=== PATIENT | female | born 1935 | race Caucasian/White ===

== ENCOUNTER 2017-06-11 06:04 | Emergency (ER) | payer MEDICARE, OTHER ==
[~2017-06-11] VITALS: Ht 167.6 cm; Wt 70.0 kg
[~2017-06-11 06:04] MED LIST: AMLO10 PO; ATEN-102 PO; AUGM500T7 PO; CITA10TA PO; IPRAAER IN; KCL10 PO; OMEP20TA39 PO; TRAM-388 PO; [UNRECOGNIZED DRUG - CODE] TOP
[2017-06-11 06:06] VITALS: BP 171/76; PULSE 55; RESP 16; TEMP 97.6; O2SAT 97
[2017-06-11 06:23] VITALS: BP 173/80; PULSE 52; RESP 18; O2SAT 96
[2017-06-11 06:28] VITALS: BP_SYST 151; BP_SYST 173; BP_DIAS 70; BP_DIAS 80
[2017-06-11 06:29] VITALS: O2SAT 96
--- NOTE | 2017-06-11 06:29 | PD ---
HPI Chief Complaint: Chest Pain Time Seen by Provider: 06:24 Travel History International Travel<30 days: No Contact w/Intl Traveler<30days: No Traveled to known affect area: No History of Present Illness HPI The patient is an 81 year old female who presents to the [facility] emergency department with a history of right-sided anterior chest wall pain that she reports began 4-5 days ago after she tripped and fell. The patient reports that she landed on that side. She denies hitting her head or losing consciousness. She denies having any neck pain, paresthesias, or weakness of her extremities. The patient said the pain is gradually getting worse with time. She reports that at times it seems to take her breath away. She reports that she took ibuprofen earlier this morning for the pain. The patient is brought in by her family member. She denies having any recent fevers,cough, congestion, neck pain, abdominal pain, vomiting, diarrhea, urinary symptoms, or neurologic symptoms. PFS Past Medical History Narrative Medical The patient's past medical history is significant for hypertension, depression, history of cerebrovascular accident, history of dementia. Arthritis: Yes Asthma: No Autoimmune Disease: No Blood Disorders: No Anxiety: No Depression: Yes Heart Rhythm Problems: No Cancer: No Cardiovascular Problems: Yes High Cholesterol: No Chemotherapy: No Chest Pain: No Congestive Heart Failure: No COPD: No Cerebrovascular Accident: Yes (CVA 2013) Diminished Hearing: No Endocrine: No Gastrointestinal Disorders: Yes (GI BLEED) GERD: No Glaucoma: No Genitourinary: No Headaches: Yes Hepatitis: No Hiatal Hernia: Yes Hypertension: Yes Immune Disorder: No Kidney Stones: No Musculoskeletal: Yes Neurologic: Yes Psychiatric: Yes Reproductive: No Respiratory: No Immunizations Current: Yes Migraines: Yes Myocardial Infarction: No Radiation Therapy: No Renal Failure: No Seizures: No Sickle Cell Disease: No Sleep Apnea: No Ulcer: Yes PNEUMOCCOCAL Vaccine (Year): 2 Past Surgical History Narrative Surgical The patient's past surgical history is significant for an appendectomy, hysterectomy, cholecystectomy, tonsillectomy. Abdominal Surgery: Yes (APPENDECTOMY,HYSTERECTOMY,CHOLECYSTECTOMY) AICD: No Appendectomy: Yes Arteriovenous Shunt: No Body Medical Devices: HX GI BLEED 1999 Cardiac Surgery: No Cholecystectomy: Yes Ear Surgery: No Endocrine Surgery: No Eye Surgery: No Genitourinary Surgery: No Gynecologic Surgery: Yes (HYSTERECTOMY) Hysterectomy: Yes Insulin Pump: No Joint Replacement: No Oral Surgery: Yes Pacemaker: No Thoracic Surgery: No Tonsillectomy: Yes Other Surgery: Yes Social History Alcohol Use: No Tobacco Use: No Substance Use: No Allergies-Medications (Allergen,Severity, Reaction): Coded Allergies: amitriptyline (Unverified Allergy, Severe, Hives, 06/11/17) aspirin (Unverified Allergy, Severe, RASH, 06/11/17) codeine (Unverified Allergy, Severe, NAUSEA AND HIVES, 06/11/17) meperidine (Unverified Allergy, Severe, 06/11/17) Reported Meds & Prescriptions Reported Meds & Active Scripts Active Active Prescriptions or Reported Medications Unobtainable Review of Systems Except as stated in HPI: all other systems reviewed are Neg General / Constitutional: No: Fever Eyes: No: Visual changes HENT: No: Headaches Cardiovascular: Positive: Chest Pain or Discomfort (right-sided chest wall pain ) Respiratory: No: Shortness of Breath Gastrointestinal: No: Nausea, Vomiting, Diarrhea, Abdominal Pain Genitourinary: No: Dysuria Musculoskeletal: No: Pain Skin: No Rash Neurologic: No: Weakness Psychiatric: No: Depression Endocrine: No: Polydipsia Hematologic/Lymphatic: No: Easy Bruising Physical Exam Narrative General: The patient is a well-developed well-nourished female in no acute distress. Head and Neck exam: Head is normocephalic atraumatic. Eyes: EOMI, pupils are equal round and reactive to light. Nose: Midline septum with pink mucous membranes Mouth: Dentition unremarkable. Moist mucus membranes. Posterior oropharynx is not erythematous. No tonsillar hypertrophy. Uvula midline. Airway patent. Neck: No palpable lymphadenopathy. No nuchal rigidity. No thyromegaly. Cardiovascular: Sinus bradycardia in the 50s without murmurs, gallops, or rubs. Lungs: Clear to auscultation bilaterally. No wheezes, rhonchi, or rales. The patient on examination her chest wall reports having chest wall pain along the right lower anterior chest wall just below the ribs. Right breast. The patient has no ecchymosis or erythema noted. No crepitus. No flail segment. Abdomen: Soft, without tenderness to palpation in all 4 quadrants of the abdomen. No guarding, rebound, or rigidity. Normal bowel sounds are audible. No tenderness on palpation of McBurney's point. Negative Marquez sign. Extremities: No clubbing, cyanosis, or edema. 2+ pulses in all 4 extremities. No calf tenderness on palpation. No extremity pain or tenderness on palpation. Back: No spinous process tenderness to palpation. No costovertebral angle tenderness to palpation. Neurologic Exam: Grossly nonfocal. Skin Exam: No rash noted. Intact skin that is warm and dry. Data Data Last Documented VS Vital Signs Date Time Temp Pulse Resp B/P (MAP) Pulse Ox O2 Delivery O2 Flow Rate FiO2 06/11/17 06:29 96 Room Air 06/11/17 06:23 52 18 06/11/17 06:06 97.6 Orders Orders Electrocardiogram (06/11/17 06:24) B-Type Natriuretic Peptide (06/11/17 06:24) Ckmb (Isoenzyme) Profile (06/11/17 06:24) Complete Blood Count With Diff (06/11/17 06:24) Comprehensive Metabolic Panel (06/11/17 06:24) D-Dimer (06/11/17 06:24) Magnesium (Mg) (06/11/17 06:24) Prothrombin Time / Inr (Pt) (06/11/17 06:24) Act Partial Throm Time (Ptt) (06/11/17 06:24) Troponin I (06/11/17 06:24) Lipase (06/11/17 06:24) Chest, Single Ap (06/11/17 06:24) Ecg Monitoring (06/11/17 06:24) Bilateral Bp Monitoring (06/11/17 06:24) Iv Access Insert/Monitor (06/11/17 06:24) Oximetry (06/11/17 06:24) Oxygen Administration (06/11/17 06:24) Nitroglycerin 2% Oint (Nitroglycerin 2% (06/11/17 06:30) Sodium Chloride 0.9% Flush (Ns Flush) (06/11/17 06:30) Nitroglycerin Sl (Nitrostat Sl) (06/11/17 06:30) Acetaminophen (Tylenol) (06/11/17 07:15) Labs Laboratory Tests Test 06/11/17 06:37 White Blood Count 7.0 TH/MM3 Red Blood Count 4.07 MIL/MM3 Hemoglobin 11.8 GM/DL Hematocrit 35.6 % Mean Corpuscular Volume 87.4 FL Mean Corpuscular Hemoglobin 28.9 PG Mean Corpuscular Hemoglobin Concent 33.1 % Red Cell Distribution Width 15.2 % Platelet Count 249 TH/MM3 Mean Platelet Volume 8.3 FL Neutrophils (%) (Auto) 71.2 % Lymphocytes (%) (Auto) 18.2 % Monocytes (%) (Auto) 9.0 % Eosinophils (%) (Auto) 0.9 % Basophils (%) (Auto) 0.7 % Neutrophils # (Auto) 5.0 TH/MM3 Lymphocytes # (Auto) 1.3 TH/MM3 Monocytes # (Auto) 0.6 TH/MM3 Eosinophils # (Auto) 0.1 TH/MM3 Basophils # (Auto) 0.0 TH/MM3 CBC Comment DIFF FINAL Differential Comment Prothrombin Time 10.0 SEC Prothromb Time International Ratio 1.0 RATIO Activated Partial Thromboplast Time 24.0 SEC D-Dimer Quantitative (PE/DVT) 2.24 MG/L [facility]U [facility] Medical Decision Making Medical Screen Exam Complete: Yes Emergency Medical Condition: Yes Medical Record Reviewed: Yes Differential Diagnosis Rib fracture, versus pneumothorax, versus pneumothorax, versus pneumonia, versus acute coronary syndrome, versus shingles, versus musculoskeletal strain, versus contusion, versus pulmonary embolism Narrative Course During the course of the patients emergency department visit, the patients history, examination, and differential diagnosis were reviewed with the patient. The patient was placed on a pvc monitor with oximetry and frequent blood pressure monitoring. The patient had IV access obtained and blood work sent for analysis. An EKG was done on arrival. The patient's EKG reveals a sinus bradycardia, first-degree AV block, rate of 53, QRS duration 92 ms, QTC 429 ms without any acute ST segment changes or elevation. The patient was initially provided Tylenol for pain, nitroglycerin sublingual times one to assess for possible changes in pain related to the administration, and nitroglycerin 1 inch the chest wall. The patients laboratory studies were reviewed and remarkable for a CBC that shows a white count 7, hemoglobin 11.8, platelets 249 with 71.2 neutrophils, PT PTT within normal limits, d-dimer is elevated at 2.24, CTA to rule out PE has been ordered. Radiology studies were reviewed and remarkable for a chest x-ray that shows minimal basilar atelectasis. No other acute abnormality. The patient's chemistry panel, cardiac enzymes, CTA to rule out PE or pending at the conclusion of my shift. The patient's case will be checked out to the oncoming emergency physician disposition the patient based on the conclusion of the workup. Diagnosis Primary Impression: Right-sided chest pain Additional Impression: Shortness of breath Scripts Unable to Obtain Active Prescriptions or Reported Meds Rut Donald MD Jun 11, 2017 06:29
[2017-06-11] MEDS ORDERED: SODIUM CHLORIDE 0.9% FLUSH 10 ML FLUSH IVF PRN (06:30)
[2017-06-11] MEDS ORDERED: NITROGLYCERIN 2% OINT 1 GM PACKET TOP ONE (06:30)
[2017-06-11] MEDS ORDERED: NITROGLYCERIN 0.4 MG SL 25 TABS/BTL SL ONE (06:30)
[2017-06-11 06:50] LABS: BASOPHIL % 0.7 % (0.0-2.0); EOSINOPHIL # 0.1 TH/MM3 (0-0.4); EOSINOPHIL % 0.9 % (0.0-4.0); HEMATOCRIT 35.6 % (35.0-46.0); HEMOGLOBIN 11.8 GM/DL (11.6-15.3); LYMPH % 18.2 % (9.0-44.0); LYMPHOCYTE # 1.3 TH/MM3 (1.0-4.8); MEAN CELL VOLUME 87.4 FL (80.0-100.0); MEAN CORPUSCULAR HEMOGLOBIN 28.9 PG (27.0-34.0); MEAN CORPUSCULAR HGB CONC 33.1 % (32.0-36.0); MEAN PLATELET VOLUME 8.3 FL (7.0-11.0); MONOCYTE # 0.6 TH/MM3 (0-0.9); NEUT % 71.2 % (16.0-70.0); PLATELET COUNT 249 TH/MM3 (150-450); RED BLOOD COUNT 4.07 MIL/MM3 (4.00-5.30); RED CELL DISTRIBUTION WIDTH 15.2 % (11.6-17.2)
--- NOTE | 2017-06-11 06:50 | RADRPT ---
EXAM DATE/TIME: 06/11/2017 06:29 [facility] COMPARISON: CHEST SINGLE AP, March 04, 2016, 22:34. INDICATIONS : Short of breath. MEDICAL HISTORY : None. SURGICAL HISTORY : None. ENCOUNTER: Initial ACUITY: 1 day PAIN SCORE: 0/10 LOCATION: Bilateral chest FINDINGS: A single view of the chest demonstrates mild cardiomegaly. Tortuous aorta. Minimal basilar atelectasi s. No effusion. No pneumothorax. Capsular calcifications around breast implants. CONCLUSION: 1. Minimal basilar atelectasis. Delfin Tavares MD on June 11, 2017 at 6:46 Board Certified Radiologist. This report was verified electronically.
[2017-06-11 07:10] LABS: D-DIMER 2.24 MG/L FEU (0.00-0.50)
[2017-06-11] MEDS ORDERED: ACETAMINOPHEN 325 MG TAB PO ONE (07:15)
[2017-06-11 07:31] LABS: ALBUMIN 3.6 GM/DL (3.4-5.0); ALKALINE PHOSPHATASE 74 U/L (45-117); ALT (GPT) 13 U/L (10-53); AST (GOT) 12 U/L (15-37); BICARBONATE 19.6 MEQ/L (21.0-32.0); BLOOD UREA NITROGEN 20 MG/DL (7-18); CALCIUM 8.2 MG/DL (8.5-10.1); CHLORIDE 113 MEQ/L (98-107); CREATININE 0.84 MG/DL (0.50-1.00); GLOMERULAR FILTRATION RATE 65 ML/MIN (>89); GLUCOSE,RANDOM 84 MG/DL (74-106); LIPASE 208 U/L (73-393); MAGNESIUM 2.1 MG/DL (1.5-2.5); SODIUM (NA) 142 MEQ/L (136-145); TOTAL BILIRUBIN ADULT 0.3 MG/DL (0.2-1.0); TOTAL PROTEIN 7.9 GM/DL (6.4-8.2); TROPONIN I LESS THAN 0.02 NG/ML (0.02-0.05)
[2017-06-11 07:34] VITALS: BP 134/70; PULSE 50; RESP 16; O2SAT 96
[2017-06-11] MEDS ORDERED: IOHEXOL 350 MG/ML 10 ML VIAL (for RAD DIAG) IVCONTRAST ONE (08:28)
[2017-06-11 08:35] VITALS: RESP 16
--- NOTE | 2017-06-11 08:55 | RADRPT ---
EXAM DATE/TIME: 06/11/2017 08:21 [facility] COMPARISON: No previous studies available for comparison. INDICATIONS : Right sided chest pain, fall. IV CONTRAST: 79 cc Omnipaque 350 (iohexol) IV RADIATION DOSE: 15.66 CTDIvol (mGy) MEDICAL HISTORY : Hypertension. Dementia. CVA SURGICAL HISTORY : Appendectomy. Hysterectomy. ENCOUNTER: Initial ACUITY: 1 day PAIN SCALE: 7/10 LOCATION: Right chest TECHNIQUE: Volumetric scanning of the chest was performed using a pulmonary embolism protocol MIP images were re constructed. Using automated exposure control and adjustment of the mA and/or kV according to patien t size, radiation dose was kept as low as reasonably achievable to obtain optimal diagnostic quality images. DICOM format image data is available electronically for review and comparison. Follow-up recommendations for detected pulmonary nodules are based at a minimum on nodule size and pa tient risk factors according to Fleischner Society Guidelines. FINDINGS: PULMONARY ARTERIES: No filling defects are seen in the pulmonary arteries through the segmental level. LUNGS: There is no consolidation or pneumothorax . 4 mm right upper lobe nodule seen toward the apex. Ground glass density in the left lower lobe measures 9 mm. Thin-walled cyst in the right lobe. There is mini mal peripheral scarring in the right lung. PLEURAE: There is no pleural thickening or pleural effusion on the left. Tiny right pleural effusion. MEDIASTINUM: There is good visualization of the great vessels of the middle mediastinum. No evidence of mediastin al or hilar adenopathy/mass. MUSCULOSKELETAL: Degenerative changes of the thoracic spine with minimal scoliosis. MISCELLANEOUS: The visualized upper abdominal organs demonstrate no acute abnormality. Calcified breast implants. CONCLUSION: 1. No evidence for pulmonary embolism. 2. Few scattered subcentimeter nodules. Followup CT chest in 6 months recommended as outpatient. 3. No pneumonia. Chintan Camarena MD on June 11, 2017 at 8:49 Board Certified Radiologist. This report was verified electronically.
[2017-06-11] MEDS ORDERED: TRAM50TA PO (09:18)
--- NOTE | 2017-06-11 09:18 | PD ---
Physical Exam Narrative Patient signed out to me by Dr. Donald. Please see her documentation for complete details. Briefly, patient is an 81-year-old female complaining of right lateral rib pain since a fall a few days ago. She denies having left-sided chest pain or any shortness of breath. Exam shows tenderness to the right lower ribs. Data Data Last Documented VS Vital Signs Date Time Temp Pulse Resp B/P (MAP) Pulse Ox O2 Delivery O2 Flow Rate FiO2 06/11/17 07:34 50 16 134/70 (91) 96 Room Air 06/11/17 06:06 97.6 Orders Orders Electrocardiogram (06/11/17 06:24) B-Type Natriuretic Peptide (06/11/17 06:24) Ckmb (Isoenzyme) Profile (06/11/17 06:24) Complete Blood Count With Diff (06/11/17 06:24) Comprehensive Metabolic Panel (06/11/17 06:24) D-Dimer (06/11/17 06:24) Magnesium (Mg) (06/11/17 06:24) Prothrombin Time / Inr (Pt) (06/11/17 06:24) Act Partial Throm Time (Ptt) (06/11/17 06:24) Troponin I (06/11/17 06:24) Lipase (06/11/17 06:24) Chest, Single Ap (06/11/17 06:24) Ecg Monitoring (06/11/17 06:24) Bilateral Bp Monitoring (06/11/17 06:24) Iv Access Insert/Monitor (06/11/17 06:24) Oximetry (06/11/17 06:24) Oxygen Administration (06/11/17 06:24) Nitroglycerin 2% Oint (Nitroglycerin 2% (06/11/17 06:30) Sodium Chloride 0.9% Flush (Ns Flush) (06/11/17 06:30) Nitroglycerin Sl (Nitrostat Sl) (06/11/17 06:30) Acetaminophen (Tylenol) (06/11/17 07:15) Ct Pulmonary Angiogram (06/11/17 07:17) Iohexol 350 Inj (Omnipaque 350 Inj) (06/11/17 08:28) Labs Laboratory Tests Test 06/11/17 06:37 White Blood Count 7.0 TH/MM3 Red Blood Count 4.07 MIL/MM3 Hemoglobin 11.8 GM/DL Hematocrit 35.6 % Mean Corpuscular Volume 87.4 FL Mean Corpuscular Hemoglobin 28.9 PG Mean Corpuscular Hemoglobin Concent 33.1 % Red Cell Distribution Width 15.2 % Platelet Count 249 TH/MM3 Mean Platelet Volume 8.3 FL Neutrophils (%) (Auto) 71.2 % Lymphocytes (%) (Auto) 18.2 % Monocytes (%) (Auto) 9.0 % Eosinophils (%) (Auto) 0.9 % Basophils (%) (Auto) 0.7 % Neutrophils # (Auto) 5.0 TH/MM3 Lymphocytes # (Auto) 1.3 TH/MM3 Monocytes # (Auto) 0.6 TH/MM3 Eosinophils # (Auto) 0.1 TH/MM3 Basophils # (Auto) 0.0 TH/MM3 CBC Comment DIFF FINAL Differential Comment Prothrombin Time 10.0 SEC Prothromb Time International Ratio 1.0 RATIO Activated Partial Thromboplast Time 24.0 SEC D-Dimer Quantitative (PE/DVT) 2.24 MG/L FEU Blood Urea Nitrogen 20 MG/DL Creatinine 0.84 MG/DL Random Glucose 84 MG/DL Total Protein 7.9 GM/DL Albumin 3.6 GM/DL Calcium Level 8.2 MG/DL Magnesium Level 2.1 MG/DL Alkaline Phosphatase 74 U/L Aspartate Amino Transf (AST/SGOT) 12 U/L Alanine Aminotransferase (ALT/SGPT) 13 U/L Total Bilirubin 0.3 MG/DL Sodium Level 142 MEQ/L Potassium Level 3.9 MEQ/L Chloride Level 113 MEQ/L Carbon Dioxide Level 19.6 MEQ/L Anion Gap 9 MEQ/L Estimat Glomerular Filtration Rate 65 ML/MIN Total Creatine Kinase 80 U/L Troponin I LESS THAN 0.02 NG/ML B-Type Natriuretic Peptide 155 PG/ML Lipase 208 U/L [facility] Supervised Visit with ALLY: No Narrative Course Labs performed show no acute abnormalities. CTA of the chest shows no evidence of rib fracture or PE. There are a few nodules in the lungs, patient informed of this and advised follow-up in 6 months for repeat scan. She will be discharged with a prescription for a few tramadol. She is advised that these may make her dizzy or drowsy and she needs to be careful to avoid falling. She is advised to follow-up with her doctor. Advised to return to the ED as needed for any worsening symptoms. She and her are both comfortable discharge at this time. Diagnosis Primary Impression: Rib pain on right side Patient Instructions: General Instructions, Rib Contusion (ED) Additional Instruction: Take Tylenol as needed for pain. He can take a tramadol for severe pain. Be careful as this may make you drowsy or dizzy. Follow-up with your doctor. Return to the ED as needed for any worsening symptoms. Scripts Tramadol (Tramadol) 50 Mg Tab 50 MG PO Q6H Y for PAIN, #7 TAB 0 Refills Prov: Enma Ernst MD 06/11/17 Disposition: DISCHARGE HOME Condition: Stable Enma Ernst MD Jun 11, 2017 09:18
--- NOTE | 2017-06-12 00:31 | EKG ---
Date Performed: 06/11/2017 Time Performed: 06:37:03 PTAGE: 81 years EKG: SINUS BRADYCARDIA WITH FIRST DEGREE AV BLOCK ABNORMAL ECG PREVIOUS TRACING : 03/03/2016 02.14 Since the prior tracing, there has been no significant villanueva DOCTOR: Aries Loredo Interpretating Date/Time 06/12/2017 00:29:13
== END 2017-06-11 10:01 | disposition home or self-care (01) ==
LOC: NEPE 06:04
DX: R07.81 Pleurodynia (principal); R06.02 Shortness of breath; R00.1 Bradycardia, unspecified
CPT/HCPCS: 71045; 71275; 80053; 82550; 83690; 83735; 83880; 84484; 85025; 85379; 85610; 85730; 93005; 99285; Q9967

== ENCOUNTER 2017-07-09 11:42 | Emergency (ER) | payer OTHER ==
[~2017-07-09 11:42] MED LIST changes: -AMLO10 PO; -ATEN-102 PO; -AUGM500T7 PO; -CITA10TA PO; -IPRAAER IN; -KCL10 PO; -OMEP20TA39 PO; -TRAM-388 PO; +TRAM50TA PO; -[UNRECOGNIZED DRUG - CODE] TOP
[2017-07-09 12:12] VITALS: BP 141/65; PULSE 53; RESP 18; TEMP 97.4
[2017-07-09 13:06] LABS: AUTOMATED NEUTROPHIL # 7.8 TH/MM3 (1.8-7.7); BASOPHIL % 0.5 % (0.0-2.0); EOSINOPHIL # 0.1 TH/MM3 (0-0.4); EOSINOPHIL % 0.9 % (0.0-4.0); HEMATOCRIT 36.9 % (35.0-46.0); LYMPH % 15.1 % (9.0-44.0); LYMPHOCYTE # 1.5 TH/MM3 (1.0-4.8); MEAN CELL VOLUME 87.1 FL (80.0-100.0); MEAN CORPUSCULAR HEMOGLOBIN 28.4 PG (27.0-34.0); MEAN CORPUSCULAR HGB CONC 32.6 % (32.0-36.0); MEAN PLATELET VOLUME 8.3 FL (7.0-11.0); MONO % 7.8 % (0.0-8.0); MONOCYTE # 0.8 TH/MM3 (0-0.9); NEUT % 75.7 % (16.0-70.0); PLATELET COUNT 237 TH/MM3 (150-450); RED BLOOD COUNT 4.23 MIL/MM3 (4.00-5.30); RED CELL DISTRIBUTION WIDTH 15.9 % (11.6-17.2); WHITE BLOOD COUNT 10.3 TH/MM3 (4.0-11.0)
[2017-07-09 13:14] LABS: PROTHROMBIN TIME - PATIENT 10.2 SEC (9.8-11.6)
[2017-07-09 13:26] LABS: TROPONIN I LESS THAN 0.02 NG/ML (0.02-0.05)
[2017-07-09 13:35] LABS: BICARBONATE 21.3 MEQ/L (21.0-32.0); BLOOD UREA NITROGEN 12 MG/DL (7-18); CALCIUM 8.7 MG/DL (8.5-10.1); CHLORIDE 107 MEQ/L (98-107); CREATININE 0.78 MG/DL (0.50-1.00); GLOMERULAR FILTRATION RATE 71 ML/MIN (>89); GLUCOSE,RANDOM 85 MG/DL (74-106); MAGNESIUM 2.1 MG/DL (1.5-2.5); SODIUM (NA) 136 MEQ/L (136-145)
--- NOTE | 2017-07-09 13:36 | RADRPT ---
EXAM DATE/TIME: 07/09/2017 13:05 [facility] COMPARISON: No previous studies available for comparison. INDICATIONS : Fall today RADIATION DOSE: 56.35 CTDIvol (mGy) MEDICAL HISTORY : Cerebrovascular disease. Hypertension. SURGICAL HISTORY : Hysterectomy. ENCOUNTER: Initial ACUITY: 1 day PAIN SCALE: 9/10 LOCATION: cranial TECHNIQUE: Multiple contiguous axial images were obtained of the head. Using automated exposure control and adj ustment of the mA and/or kV according to patient size, radiation dose was kept as low as reasonably a chievable to obtain optimal diagnostic quality images. DICOM format image data is available electro nically for review and comparison. FINDINGS: CEREBRUM: Bilateral occipital infarcts are seen. Infarct in the right basal ganglia and to a lesser degree left basal ganglia. Left cerebellar infarct. The ventricles are prominent consistent with atrophy. No ev idence of midline shift, mass lesion, hemorrhage or acute infarction. No extra-axial fluid collectio ns are seen. POSTERIOR FOSSA: The brainstem is intact. The 4th ventricle is midline. The cerebellopontine angle is unremarkable. EXTRACRANIAL: The visualized portion of the orbits is intact. SKULL: Prominent lytic lesion in the left posterior occipital/parietal calvarium measures 2.9 x 1.0 cm. Ther e is destructive lytic process of the outer table and medullary portion. This is concerning for metas tatic disease. CONCLUSION: 1. Cerebral atrophy and multifocal bilateral remote infarcts. 2. 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 Chintan Camarena MD on July 09, 2017 at 13:31 Board Certified Radiologist. This report was verified electronically.
--- NOTE | 2017-07-09 13:39 | RADRPT ---
EXAM DATE/TIME: 07/09/2017 12:54 [facility] COMPARISON: CHEST PA & LAT, September 13, 2015, 15:45. INDICATIONS : Shortness of breath and palpitations. MEDICAL HISTORY : None. SURGICAL HISTORY : None. ENCOUNTER: Initial ACUITY: 1 day PAIN SCORE: 0/10 LOCATION: Bilateral chest FINDINGS: AP and lateral views of the chest demonstrate a normal-sized cardiac silhouette with calcification of the aorta. Lungs are underinflated with mild bibasilar opacity. No pleural effusion or pneumothorax is identified. There is a stable subpleural opacity at the right lung apex. Bones and soft tissues de monstrate no acute finding. There is levoscoliosis of the lumbar spine. Breast implants are present. CONCLUSION: Underinflation with atelectasis at the lung bases. Otherwise, no acute cardiopulmonary abnormality is identified. Ryan Dimas MD on July 09, 2017 at 13:37 Board Certified Radiologist. This report was verified electronically.
--- NOTE | 2017-07-09 13:41 | PD ---
HPI Chief Complaint: Fall Time Seen by Provider: 13:03 Travel History International Travel<30 days: No Contact w/Intl Traveler<30days: No Traveled to known affect area: No History of Present Illness HPI 81-year-old female complains left wrist pain left hand pain. Patient states that she fell this morning. Patient denies loss of consciousness. Patient denies any headache or neck pain. Patient denies any chest pain or shortness of breath. Patient denies abdominal pain. Patient denies any focal weakness or numbness of the extremity. Patient states that she has frequent falls recently. Patient states that she has been eating well. Patient stated that no new medication recently. PFSH Past Medical History Arthritis: Yes Asthma: No Autoimmune Disease: No Blood Disorders: No Anxiety: No Depression: Yes Heart Rhythm Problems: No Cancer: No Cardiovascular Problems: Yes High Cholesterol: No Chemotherapy: No Chest Pain: No Congestive Heart Failure: No COPD: No Cerebrovascular Accident: Yes (CVA 2013) Diminished Hearing: No Endocrine: No Gastrointestinal Disorders: Yes (GI BLEED) GERD: No Glaucoma: No Genitourinary: No Headaches: Yes Hepatitis: No Hiatal Hernia: Yes Hypertension: Yes Immune Disorder: No Kidney Stones: No Musculoskeletal: Yes Neurologic: Yes Psychiatric: Yes Reproductive: No Respiratory: No Immunizations Current: Yes Migraines: Yes Myocardial Infarction: No Radiation Therapy: No Renal Failure: No Seizures: No Sickle Cell Disease: No Sleep Apnea: No Ulcer: Yes PNEUMOCCOCAL Vaccine (Year): 2 Past Surgical History Abdominal Surgery: Yes (APPENDECTOMY,HYSTERECTOMY,CHOLECYSTECTOMY) AICD: No Appendectomy: Yes Arteriovenous Shunt: No Body Medical Devices: HX GI BLEED 1999 Cardiac Surgery: No Cholecystectomy: Yes Ear Surgery: No Endocrine Surgery: No Eye Surgery: No Genitourinary Surgery: No Gynecologic Surgery: Yes (HYSTERECTOMY) Hysterectomy: Yes Insulin Pump: No Joint Replacement: No Oral Surgery: Yes Pacemaker: No Thoracic Surgery: No Tonsillectomy: Yes Other Surgery: Yes Social History Alcohol Use: No Tobacco Use: No Substance Use: No Allergies-Medications (Allergen,Severity, Reaction): Coded Allergies: amitriptyline (Unverified Allergy, Severe, Hives, 06/11/17) aspirin (Unverified Allergy, Severe, RASH, 06/11/17) codeine (Unverified Allergy, Severe, NAUSEA AND HIVES, 06/11/17) meperidine (Unverified Allergy, Severe, 06/11/17) Reported Meds & Prescriptions Reported Meds & Active Scripts Active Active Prescriptions or Reported Medications Unobtainable Review of Systems General / Constitutional: No: Fever Eyes: No: Visual changes HENT: No: Headaches Cardiovascular: No: Chest Pain or Discomfort Respiratory: No: Shortness of Breath Gastrointestinal: No: Abdominal Pain Genitourinary: No: Dysuria Musculoskeletal: Positive: Pain Skin: No Rash Neurologic: No: Weakness Psychiatric: No: Depression Endocrine: No: Polydipsia Hematologic/Lymphatic: No: Easy Bruising Physical Exam Narrative GENERAL: Well-nourished, well-developed patient. SKIN: Focused skin assessment warm/dry. HEAD: Normocephalic. EYES: No scleral icterus. No injection or drainage. NECK: Supple, trachea midline. No JVD or lymphadenopathy. CARDIOVASCULAR: Regular rate and rhythm without murmurs, gallops, or rubs. RESPIRATORY: Breath sounds equal bilaterally. No accessory muscle use. GASTROINTESTINAL: Abdomen soft, non-tender, nondistended. MUSCULOSKELETAL: No cyanosis, or edema. Patient has small laceration left elbow about 1 cm. The laceration is superficial. No active bleeding. No tenderness on palpation of bony structure left elbow. Patient has ecchymosis swelling tenderness over ulnar aspect of left wrist and dorsal aspect of left hand over the distal metacarpals. Full range of motion of the fingers. BACK: Nontender without obvious deformity. No CVA tenderness. Neurologic exam: Patient is awake and alert oriented 3. No obvious focal neurological deficit. Data Data Last Documented VS Vital Signs Date Time Temp Pulse Resp B/P (MAP) Pulse Ox O2 Delivery O2 Flow Rate FiO2 07/09/17 12:12 97.4 53 18 141/65 (90) Orders Orders Electrocardiogram (07/09/17 12:15) Basic Metabolic Panel (Bmp) (07/09/17 12:15) Complete Blood Count With Diff (07/09/17 12:15) Magnesium (Mg) (07/09/17 12:15) Ckmb (Isoenzyme) Profile (07/09/17 12:15) Troponin I (07/09/17 12:15) Act Partial Throm Time (Ptt) (07/09/17 12:15) Prothrombin Time / Inr (Pt) (07/09/17 12:15) Urinalysis - C+S If Indicated (07/09/17 12:15) Chest, Pa & Lat (07/09/17 12:15) Ct Brain W/O Iv Contrast(Rout) (07/09/17 12:15) Wrist, Complete ([id number]) (07/09/17 ) CKMB (07/09/17 12:40) CKMB% (07/09/17 12:40) Hand, Complete ([id number]) (07/09/17 13:33) Labs Laboratory Tests Test 07/09/17 12:40 White Blood Count 10.3 TH/MM3 Red Blood Count 4.23 MIL/MM3 Hemoglobin 12.0 GM/DL Hematocrit 36.9 % Mean Corpuscular Volume 87.1 FL Mean Corpuscular Hemoglobin 28.4 PG Mean Corpuscular Hemoglobin Concent 32.6 % Red Cell Distribution Width 15.9 % Platelet Count 237 TH/MM3 Mean Platelet Volume 8.3 FL Neutrophils (%) (Auto) 75.7 % Lymphocytes (%) (Auto) 15.1 % Monocytes (%) (Auto) 7.8 % Eosinophils (%) (Auto) 0.9 % Basophils (%) (Auto) 0.5 % Neutrophils # (Auto) 7.8 TH/MM3 Lymphocytes # (Auto) 1.5 TH/MM3 Monocytes # (Auto) 0.8 TH/MM3 Eosinophils # (Auto) 0.1 TH/MM3 Basophils # (Auto) 0.0 TH/MM3 CBC Comment DIFF FINAL Differential Comment Prothrombin Time 10.2 SEC Prothromb Time International Ratio 1.0 RATIO Activated Partial Thromboplast Time 22.0 SEC Blood Urea Nitrogen 12 MG/DL Creatinine 0.78 MG/DL Random Glucose 85 MG/DL Calcium Level 8.7 MG/DL Magnesium Level 2.1 MG/DL Sodium Level 136 MEQ/L Potassium Level 4.1 MEQ/L Chloride Level 107 MEQ/L Carbon Dioxide Level 21.3 MEQ/L Anion Gap 8 MEQ/L Estimat Glomerular Filtration Rate 71 ML/MIN Total Creatine Kinase 105 U/L Creatine Kinase MB 1.7 NG/ML Troponin I LESS THAN 0.02 NG/ML MDM Medical Decision Making Medical Screen Exam Complete: Yes Emergency Medical Condition: Yes Interpretation(s) Last Impressions Hand X-Ray 07/09/17 [id number] Signed Impressions: Service Date/Time: Sunday, July 09, 2017 13:49 - CONCLUSION: 1. Fractures of the metacarpal next 3 through 5 and possibly involving the second neck. 2. Extensive arthritic changes. Chintan Camarena MD Head CT 07/09/175 Signed Impressions: Service Date/Time: Sunday, July 09, 2017 13:05 - CONCLUSION: 1. Cerebral atrophy and multifocal bilateral remote infarcts. 2. 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 Chintan Camarena MD Chest X-Ray 07/09/175 Signed Impressions: Service Date/Time: Sunday, July 09, 2017 12:54 - CONCLUSION: Underinflation with atelectasis at the lung bases. Otherwise, no acute cardiopulmonary abnormality is identified. Ryan Dimas MD Wrist X-Ray 07/09/17 0000 Signed Impressions: Service Date/Time: Sunday, July 09, 2017 12:56 - CONCLUSION: 1. Suspected fractures involving the distal third through fifth metacarpals. A left hand x-ray is scheduled to be performed. Please refer to that report for further description. 2. 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 Ryan Dimas MD Differential Diagnosis Differential diagnosis including contusion, fracture, dislocation. Narrative Course 81-year-old female with left wrist left hand injury. Status post fall. Volar splint applied. Diagnosis Primary Impression: Fracture of metacarpal, multiple sites, left hand, closed Qualified Codes: S62.309A - Unspecified fracture of unspecified metacarpal bone, initial encounter for closed fracture Additional Impression: Lytic bone lesions on xray Patient Instructions: General Instructions Additional Instructions: Tylenol for pain. Follow-up with personal physician for lytic lesion on the skull. Follow-up with orthopedist or hand surgeon for fracture left hand Med/Other Pt SpecificInfo: No Change to Meds Scripts Unable to Obtain Active Prescriptions or Reported Meds Disposition: 01 DISCHARGE HOME Condition: Stable Vinod Cisneros MD Jul 09, 2017 13:41
--- NOTE | 2017-07-09 13:41 | RADRPT ---
EXAM DATE/TIME: 07/09/2017 12:56 [facility] COMPARISON: No previous studies available for comparison. INDICATIONS : Left wrist pain, fall. MEDICAL HISTORY : None. SURGICAL HISTORY : None. ENCOUNTER: Initial ACUITY: 1 day PAIN SCORE: 9/10 LOCATION: Left posterior wrist FINDINGS: 3 views of the left wrist demonstrate under mineralization of the bones. There are potential fracture s involving the distal third, fourth, and fifth metacarpals that is only partially visualized on the edge of the image on this examination. The carpal bones appear intact. There is severe osteoarthritis at the first carpometacarpal joint with joint space narrowing, subchondral sclerosis, and hypertroph ic osteophytes. No soft tissue abnormality or radiopaque foreign body is seen. CONCLUSION: 1. Suspected fractures involving the distal third through fifth metacarpals. A left hand x-ray is lior eduled to be performed. Please refer to that report for further description. 2. Otherwise, the bones are undermineralized and there is severe osteoarthritis at the first CMC join joan Dimas MD on July 09, 2017 at 13:38 Board Certified Radiologist. This report was verified electronically.
--- NOTE | 2017-07-09 14:18 | RADRPT ---
EXAM DATE/TIME: 07/09/2017 13:49 [facility] COMPARISON: No previous studies available for comparison. INDICATIONS : Left hand pain, fall. MEDICAL HISTORY : None. SURGICAL HISTORY : None. ENCOUNTER: Initial ACUITY: 1 day PAIN SCORE: 8/10 LOCATION: Left posterior hand, metacarpals FINDINGS: Three view examination of the left hand demonstrates extensive arthritic changes of the interphalange al joints and first carpometacarpal joints. Degenerative changes also involving the metacarpal phalan geal joints. There are fractures of the neck of the third through fifth metacarpals and possibly invo lving the second metacarpal neck. Bony mineralization is normal. CONCLUSION: 1. Fractures of the metacarpal next 3 through 5 and possibly involving the second neck. 2. Extensive arthritic changes. Chintan Camarena MD on July 09, 2017 at 14:15 Board Certified Radiologist. This report was verified electronically.
[2017-07-09 15:01] LABS: BACTERIA, URINE OCC /hpf; BILIRUBIN, URINE NEG (NEG); BLOOD, URINE NEG (NEG); GLUCOSE,URINE NEG (NEG); KETONE, URINE NEG (NEG); NITRITE,URINE NEG (NEG); RENAL EPITHELIAL CELLS <1 /hpf; SQUAMOUS EPITHELIAL CELL URINE <1 /hpf (0-5); URINE COLOR YELLOW (YELLW/STRAW); URINE LEUKOCYTE ESTERASE LARGE (NEG)
--- NOTE | 2017-07-10 12:29 | EKG ---
Date Performed: 07/09/2017 Time Performed: 12:28:40 PTAGE: 81 years EKG: SINUS BRADYCARDIA WITH FIRST DEGREE AV BLOCK MODERATE VOLTAGE CRITERIA FOR LVH, CONSIDER NO RMAL VARIANT ABNORMAL ECG PREVIOUS TRACING : 06/11/2017 06.37 Since the prior tracing, there has been no significant villanueva DOCTOR: Rosendo Bunn Interpretating Date/Time 07/10/2017 12:28:42
== END 2017-07-09 16:00 | disposition home or self-care (01) ==
LOC: NEPC 11:42
DX: S62.333A Displaced fracture of neck of third metacarpal bone, left hand, initial encounter for closed fracture (principal); S62.335A Displaced fracture of neck of fourth metacarpal bone, left hand, initial encounter for closed fracture; S62.337A Displaced fracture of neck of fifth metacarpal bone, left hand, initial encounter for closed fracture; J98.11 Atelectasis; M19.032 Primary osteoarthritis, left wrist; R00.1 Bradycardia, unspecified; I44.0 Atrioventricular block, first degree; R94.31 Abnormal electrocardiogram [ECG] [EKG]; W18.30XA Fall on same level, unspecified, initial encounter
CPT/HCPCS: 70450; 71046; 73110; 73130; 80048; 81001; 82550; 82552; 83735; 84484; 85025; 85610; 85730; 87086; 93005; 99285